=== PATIENT | female | born 1965 | race Caucasian/White ===

== ENCOUNTER 2018-08-01 16:06 | Emergency (ER) | payer OTHER ==
[~2018-08-01] VITALS: Ht 160 cm; Wt 109.8 kg
[2018-08-01 16:44] LABS: URINE BILIRUBIN NEGATIVE (Negative); URINE BLOOD TRACE (Negative); URINE CLARITY CLEAR; URINE COLOR YELLOW; URINE GLUCOSE-RANDOM* NEGATIVE (Negative); URINE KETONES NEGATIVE (Negative); URINE LEUKOCYTES-REFLEX NEGATIVE (Negative); URINE NITRITE-REFLEX NEGATIVE (Negative); URINE PROTEIN (DIPSTICK) NEGATIVE (Negative); URINE UROBILINOGEN 0.2 E.U./dl (0.2-1.0)
[2018-08-01] MEDS ORDERED: SYNTHROID100 MC1 PO (18:30)
[2018-08-01] MEDS ORDERED: ALLEGRA ALLERGY60 MG PO (18:31)
[2018-08-01 19:52] LABS: ABSOLUTE NEUTROPHILS 2.2 thou/uL (1.4-8.2); BASOPHILS 0.5 % (0.0-2.0); EOSINOPHILS 2.6 % (0.0-3.0); HEMATOCRIT 35.1 % (37.0-47.0); HEMOGLOBIN 12.2 gm/dL (12.0-15.0); LYMPHOCYTES 48.5 % (24.0-44.0); MCH 34.1 pg (26.0-34.0); MCHC 34.9 g/dL (28.0-37.0); MCV 97.8 fL (80.0-100.0); PLATELET COUNT 330 thou/uL (150-400); POLYS 43.4 % (36.0-66.0); RBC 3.59 mil/uL (4.20-5.00); WBC 5.1 thou/uL (4.0-11.0)
[2018-08-01 19:56] LABS: CALCIUM 9.3 mg/dL (8.5-10.1); CREATININE 0.9 mg/dL (0.6-1.0); POTASSIUM 3.8 mmol/L (3.5-5.1)
[2018-08-01 20:02] LABS: ALBUMIN 3.1 g/dL (3.4-5.0); TOTAL BILIRUBIN 0.2 mg/dL (<0.1-1.0); TOTAL PROTEIN 7.7 g/dL (6.4-8.2)
[2018-08-01] MEDS ORDERED: NORCO 5-325 TA1 EACH PO (20:40)
[2018-08-01] MEDS ORDERED: ONDANSETRON HCL4 M2 PO (20:40)
[2018-08-01] MEDS ORDERED: CIPRO500 MG PO (20:40)
[2018-08-01] MEDS ORDERED: FLAGYL500 MG PO (20:40)
[2018-08-01] MEDS ORDERED: VANCOCIN 125 M125 M1 PO (20:42)
[2018-08-01 21:03] VITALS: BP 117/73
== END 2018-08-01 21:06 | disposition home or self-care (01) ==
LOC: ER 16:06
PROVIDERS: Physician Assistant
DX: K57.92 Diverticulitis of intestine, part unspecified, without perforation or abscess without bleeding (principal); Z87.19 Personal history of other diseases of the digestive system; Z88.1 Allergy status to other antibiotic agents; Z88.8 Allergy status to other drugs, medicaments and biological substances